=== PATIENT | male | born 1950 | race Caucasian/White ===

== ENCOUNTER 2017-10-08 21:17 | Emergency (ER) | payer OTHER ==
[~2017-10-08] VITALS: Ht 180.3 cm; Wt 98.0 kg
[~2017-10-08 21:17] MED LIST: ASPIR 8181 MG PER TUBE; ATORVASTATIN CA40 MG PER TUBE; CARAFATE1 GM PO; IMDUR 30 MG TAB30 M1 PO; JANUVIA100 MG PO; LEVEMIR SUBQ; LISINOPRIL-HCT1 EACH PO; METOPROLOL TART25 MG PER TUBE; NEURONTIN 300300 M1 PO; NITROGLYCERIN0.4 MG SUBLING; NOVOLOG100 UNIT/1 SUBQ; OMEGA-31000 M1 PO; PHENERGAN 25 MG25 M1 PO; SERTRALINE HCL50 MG PER TUBE; TRULICITY1.5 MG/0.5 SQ; VITAMIN B-12500 MCG PO
[2017-10-08] MEDS ORDERED: LISINOPRIL10 MG PO (21:32)
[2017-10-08 21:57] LABS: HEMATOCRIT 40.3 % (42.0-52.0); HEMOGLOBIN 12.9 gm/dL (14.0-18.0); MCV 84.3 fL (80.0-100.0); MPV 7.9 fl. (7.2-11.1); NUCLEATED RBCS 0 /100WBC; PLATELET COUNT* 270 thou/uL (150-400); RBC 4.79 mil/uL (4.50-6.00); RDW-CV 18.7 % (10.5-14.5); WBC 25.8 thou/uL (4.0-11.0)
[2017-10-08] MEDS ORDERED: ACETAMINOP160 MG/5 M PER TUBE (22:04)
[2017-10-08 22:05] LABS: CALCIUM 8.9 mg/dL (8.5-10.1); CREATININE 1.3 mg/dL (0.6-1.3); POTASSIUM 5.2 mmol/L (3.5-5.1)
[2017-10-08] MEDS ORDERED: LIORESAL 10 MG10 MG PER TUBE (22:05)
[2017-10-08] MEDS ORDERED: TESSALON PERLE100 MG PO (22:06)
[2017-10-08] MEDS ORDERED: ZERBAXA 1-0.51.5 GM IV (22:07)
[2017-10-08 22:08] LABS: APTT 29.4 Seconds (25.0-31.3); INR 1.1; PROTIME 10.8 Seconds (9.20-11.50)
[2017-10-08] MEDS ORDERED: DIFLUCAN200 MG PER TUBE (22:08)
[2017-10-08] MEDS ORDERED: GUAIFENESI100 MG/5 M PER TUBE (22:09)
[2017-10-08] MEDS ORDERED: ISORDIL10 MG PER TUBE (22:10)
[2017-10-08 22:16] LABS: ALBUMIN 2.7 g/dL (3.4-5.0); TOTAL BILIRUBIN 0.4 mg/dL (<0.1-1.0); TOTAL PROTEIN 8.4 g/dL (6.4-8.2); TROPONIN-I LEVEL 0.08 ng/mL (<0.06)
[2017-10-08] MEDS ORDERED: TOBRAMYCIN40 MG/1 ML IV (22:17)
[2017-10-08] MEDS ORDERED: TRAMADOL 50 MG50 MG PER TUBE (22:18)
[2017-10-08] MEDS ORDERED: SENNA8.8 MG/5 M PER TUBE (22:19)
[2017-10-08] MEDS ORDERED: SENNA8.6 MG PER TUBE (22:19)
[2017-10-08] MEDS ORDERED: OXYCODONE H5 MG/5 ML PER TUBE (22:21)
[2017-10-08] MEDS ORDERED: PROBIOTIC1 EAC1 PER TUBE (22:21)
[2017-10-08] MEDS ORDERED: ALBUTEROL2.5 MG/31 INH (22:22)
[2017-10-08 22:23] LABS: INFLUENZA A ANTIGEN None Detected (None Detect); INFLUENZA B ANTIGEN None Detected (None Detect)
[2017-10-08 22:26] LABS: ABSOLUTE LYMPHOCYTES 1.3 thou/uL (0.8-5.3); ABSOLUTE MONOCYTES 1.8 thou/uL (0.0-1.2); ABSOLUTE NEUTROPHILS 22.7 thou/uL (1.6-8.1); ANISOCYTOSIS Occasional; PLATELET ESTIMATE ADEQUATE; TOXIC GRANULATION 1+
[2017-10-09 00:08] VITALS: BP 162/83
--- NOTE | 2017-10-09 11:00 | EKG ---
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 : 1950 Requested By: Toribio Guzman Order Number: [id number] MD: Olivier Mckenzie Measurements Intervals [place] Rate: 125 P: 69 NM: 159 QRS: 88 QRSD: 95 T: -3 QT: 307 QTc: 443 Interpretive Statements Sinus tachycardia Borderline T wave abnormalities Baseline wander in lead(s) V1,V2 Compared to ECG 03/31/2017 20:14:59 rate increased Electronically Signed On 10-09-2017 11:00:12 ART GALLERY DIRECTOR by Olivier Mckenzie [email or web address] <ELECTRONICALLY SIGNED> By: Olivier Mckenzie MD, [facility] 10/09/17 1100 47 47 Olivier Mckenzie MD, FACC /EPI
== END 2017-10-09 00:08 | disposition short-term general hospital (02) ==
LOC: M.ERS 21:17
PROVIDERS: Emergency Medicine Emergency Medical Services
DX: J15.6 Pneumonia due to other Gram-negative bacteria (principal); E11.9 Type 2 diabetes mellitus without complications; I25.10 Atherosclerotic heart disease of native coronary artery without angina pectoris; Z95.1 Presence of aortocoronary bypass graft

== ENCOUNTER 2018-01-20 03:06 | Inpatient (IN) | payer OTHER ==
[~2018-01-20] VITALS: Ht 177.8 cm; Wt 103.0 kg
[~2018-01-20 03:06] MED LIST changes: +ACETAMINOP160 MG/5 M PER TUBE; +ALBUTEROL2.5 MG/31 INH; +DIFLUCAN200 MG PER TUBE; +GUAIFENESI100 MG/5 M PER TUBE; +ISORDIL10 MG PER TUBE; +LIORESAL 10 MG10 MG PER TUBE; +LISINOPRIL10 MG PO; +OXYCODONE H5 MG/5 ML PER TUBE; +PROBIOTIC1 EAC1 PER TUBE; +SENNA8.6 MG PER TUBE; +SENNA8.8 MG/5 M PER TUBE; +TESSALON PERLE100 MG PO; +TOBRAMYCIN40 MG/1 ML IV; +TRAMADOL 50 MG50 MG PER TUBE; +ZERBAXA 1-0.51.5 GM IV
[2018-01-20 03:07] VITALS: BP 148/81
[2018-01-20] MEDS ORDERED: LIORESAL 10 MG10 MG PER TUBE (03:17)
[2018-01-20] MEDS ORDERED: NEURONTIN250 MG/5 M PER TUBE ×2 (03:30→03:31)
[2018-01-20] MEDS ORDERED: MIRALAX17 GM PER TUBE (03:32)
[2018-01-20] MEDS ORDERED: VITAMINC500 PER TUBE (03:33)
[2018-01-20 03:48] LABS: HEMATOCRIT 25.7 % (42.0-52.0); HEMOGLOBIN 8.6 gm/dL (14.0-18.0); MCH 28.2 pg (26.0-34.0); MCHC 33.4 g/dL (28.0-37.0); MCV 84.4 fL (80.0-100.0); MPV 6.9 fl. (7.2-11.1); NUCLEATED RBCS 0 /100WBC; PLATELET COUNT* 289 thou/uL (150-400); RBC 3.05 mil/uL (4.50-6.00); RDW-CV 16.1 % (10.5-14.5); WBC 10.6 thou/uL (4.0-11.0)
[2018-01-20 03:57] LABS: BE 4.8 mmol/L (-2 to +3); HCO3 29.1 mmol/L (22.0-26.0); PCO2 41.8 mmHg (35.0-45.0); PO2 70.7 mmHg (75.0-100.0)
[2018-01-20 04:23] LABS: ANION GAP 7 mmol/L (7-16); BUN 25 mg/dL (7-18); CALCIUM 8.6 mg/dL (8.5-10.1); CHLORIDE 102 mmol/L (98-107); CO2 31 mmol/L (21-32); CREATININE 0.8 mg/dL (0.6-1.3); GLUCOSE 107 mg/dL (70-99); POTASSIUM 4.5 mmol/L (3.5-5.1); SODIUM 140 mmol/L (136-145)
[2018-01-20 04:30] LABS: ALBUMIN 2.5 g/dL (3.4-5.0); ALKALINE PHOSPHATASE 139 U/L (46-116); SGOT 26 U/L (15-37); SGPT 29 U/L (30-65); TOTAL BILIRUBIN 0.3 mg/dL (<0.1-1.0); TROPONIN-I LEVEL <0.06 ng/mL (<0.06)
[2018-01-20 06:26] LABS: ABSOLUTE EOSINOPHILS 0.2 thou/uL (0.0-0.7); ABSOLUTE LYMPHOCYTES 1.5 thou/uL (0.8-5.3); ABSOLUTE MONOCYTES 0.8 thou/uL (0.0-1.2); ABSOLUTE NEUTROPHILS 8.1 thou/uL (1.6-8.1); ATYPICAL LYMPHS 2 %; PLATELET ESTIMATE ADEQUATE
[2018-01-20 07:38] VITALS: BP 150/73
[2018-01-20 08:05] VITALS: BP 144/92
[2018-01-20 11:08] VITALS: BP 148/66
--- NOTE | 2018-01-20 14:57 | EKG ---
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 : 1950 Requested By: Angelina Rust Order Number: [id number] MD: Olivier Mckenzie Measurements Intervals [place] Rate: 98 P: 18 ME: 170 QRS: 41 QRSD: 89 T: 3 QT: 335 QTc: 428 Interpretive Statements Sinus rhythm Ventricular premature complex Compared to ECG 10/08/2017 21:48:54 Ventricular premature complex(es) now present Sinus tachycardia no longer present Electronically Signed On 01-20-2018 14:56:55 CDT by Olivier Mckenzie [email or web address] <ELECTRONICALLY SIGNED> By: Olivier Mckenzie MD, [facility] 01/20/18 1456 [phone] Olivier Mckenzie MD, [facility] /EPI
[2018-01-20 16:07] VITALS: BP 142/68
[2018-01-20 16:29] LABS: URINE BILIRUBIN NEGATIVE (Negative); URINE BLOOD NEGATIVE (Negative); URINE CLARITY CLEAR; URINE COLOR YELLOW; URINE GLUCOSE-RANDOM NEGATIVE (Negative); URINE KETONES NEGATIVE (Negative); URINE LEUKOCYTES-REFLEX NEGATIVE (Negative); URINE NITRITE-REFLEX NEGATIVE (Negative); URINE PROTEIN NEGATIVE (Negative); URINE SPECIFIC GRAVITY 1.015 (1.005-1.030); URINE UROBILINOGEN 0.2 E.U./dl (0.2-1.0)
--- NOTE | 2018-01-20 18:23 | NUR ---
PATINET RESTING IN BED. UP WITH ASSISTANCE R/T LEG WEAKNESS. TUBE FEEDINGS AT NIGHT WITH OSMOLITE 1.5 X 5 CANS AT RATE GOAL OF 80ML/HR. PATINET HEAD OF BED TO REMAIN AT NO LESS THAN 30 DEGREES. VITAL SIGNS STBALE. LIUNGS DIMINISHED TO WHEEZY THROUGHOUT. HOURLY ROUNDING COMPLETED FOR PATIENT SAFETY. TUBE FEEDINGS THROUGHT J TUBE. UA AND SPUTUM SPECIMEN SENT.
[2018-01-20 19:50] VITALS: BP 158/71
[2018-01-21] VITALS: BP 147/78
--- NOTE | 2018-01-21 02:06 | NUR ---
ASSUMED CARE OF PT AT 1900. PT IS ALERT AND ORIENTED. VSS. PERRLA. NO COMPLAINTS OF PAIN. PT IS ON TUBE FEEDING (ISOSOURCE 1.5) AT 80ML/HR. TUBE FEEDING STARTED AT 2200. PT IS COUGHING UP COPIOUS AMOUNTS OF THICK YELLOW SPUTUM. PT IS IN SINUS RYTHM ON THE TELEMETRY. PT IS RESTING COMFORTABLY IN BED. RESPIRATIONS ARE EVEN AND NONLABORED. WILL CONTINUE TO MONITOR PT.
[2018-01-21 04:00] VITALS: BP 147/76
[2018-01-21 04:55] LABS: HEMATOCRIT 26.8 % (42.0-52.0); MCH 28.5 pg (26.0-34.0); MCHC 33.4 g/dL (28.0-37.0); MCV 85.4 fL (80.0-100.0); RBC 3.14 mil/uL (4.50-6.00); RDW-CV 15.5 % (10.5-14.5); WBC 6.8 thou/uL (4.0-11.0)
[2018-01-21 05:10] LABS: ALBUMIN 2.2 g/dL (3.4-5.0); CALCIUM 8.6 mg/dL (8.5-10.1); MAGNESIUM 1.9 mg/dL (1.8-2.4); TOTAL BILIRUBIN 0.4 mg/dL (<0.1-1.0); TOTAL PROTEIN 7.6 g/dL (6.4-8.2)
[2018-01-21 05:21] LABS: POTASSIUM 6.4 mmol/L (3.5-5.1)
[2018-01-21 08:00] VITALS: BP 157/76
[2018-01-21 11:00] VITALS: BP 138/81
[2018-01-21 12:31] LABS: CREATININE 1.3 mg/dL (0.6-1.3); POTASSIUM 5.6 mmol/L (3.5-5.1)
[2018-01-21 16:00] VITALS: BP 141/81
[2018-01-21 19:45] VITALS: BP 142/65
[2018-01-22] VITALS: BP 140/80
--- NOTE | 2018-01-22 03:42 | NUR ---
REPORT AND ASSUMED CARE AT 1900. VSS. CARDIAC MONITORING IN PLACE. PT DENIES ANY COMPLAINTS OF PAIN. PT UP WITH ASSIST TO BSC, PT ON 2L NC. MEDICATIONS ADMINISTERED PER EMAR. ASSESSMENT COMPLETED CHARTED. PT TUBE FFEDING STARTED AND RAN AT 60ML/HR. PT DOES NOT TOLDERATE 80ML/HR WELL ORDERED. HOURLY ROUNDING COMPLETED, ALL NEEDS MET. BED IN LOWEST POSITION, CALL LIGHT WITHIN REACH, BED ALARM ON. WILL CONTINUE TO MONITOR FOR REMAINDER OF THE SHIFT
[2018-01-22 04:00] VITALS: BP 110/68
[2018-01-22 04:06] LABS: GLYCOHEMOGLOBIN (HGB A1C) 5.4 % (4.8-5.6)
[2018-01-22 05:49] LABS: ABSOLUTE LYMPHOCYTES 0.7 thou/uL (0.8-5.3); ABSOLUTE MONOCYTES 1.1 thou/uL (0.0-1.2); BASOPHILS 0.1 %; EOSINOPHILS 0.1 %; HEMATOCRIT 26.3 % (42.0-52.0); HEMOGLOBIN 8.9 gm/dL (14.0-18.0); LYMPHOCYTES 3.9 %; MCH 28.2 pg (26.0-34.0); MCHC 33.6 g/dL (28.0-37.0); MONOCYTES 6.5 %; MPV 6.9 fl. (7.2-11.1); NUCLEATED RBCS 0 /100WBC; PLATELET COUNT* 321 thou/uL (150-400); POLYS 89.4 %; RBC 3.14 mil/uL (4.50-6.00); RDW-CV 15.7 % (10.5-14.5); WBC 16.8 thou/uL (4.0-11.0)
[2018-01-22 06:03] LABS: ALBUMIN 2.4 g/dL (3.4-5.0); CALCIUM 8.8 mg/dL (8.5-10.1); CREATININE 1.2 mg/dL (0.6-1.3); TOTAL BILIRUBIN 0.4 mg/dL (<0.1-1.0); TOTAL PROTEIN 7.3 g/dL (6.4-8.2)
[2018-01-22 06:15] LABS: PREALBUMIN 15.9 mg/dL (18.0-35.7)
[2018-01-22 08:00] VITALS: BP 166/80
[2018-01-22 11:30] VITALS: BP 174/78
[2018-01-22 17:24] VITALS: BP 132/61
[2018-01-22 19:30] VITALS: BP 149/86
[2018-01-23] VITALS: BP 148/72
[2018-01-23 04:00] VITALS: BP 141/73
[2018-01-23 05:29] LABS: HEMATOCRIT 24.6 % (42.0-52.0); HEMOGLOBIN 8.2 gm/dL (14.0-18.0); MCH 28.1 pg (26.0-34.0); MCHC 33.3 g/dL (28.0-37.0); MCV 84.3 fL (80.0-100.0); MPV 6.8 fl. (7.2-11.1); NUCLEATED RBCS 0 /100WBC; PLATELET COUNT* 280 thou/uL (150-400); RBC 2.92 mil/uL (4.50-6.00); RDW-CV 16.1 % (10.5-14.5); WBC 12.6 thou/uL (4.0-11.0)
--- NOTE | 2018-01-23 05:30 | NUR ---
RECEIVED REPORT AND ASSUMED CARE AT 1900. VSS. CARDIAC MONITORING IN PLACE. PT UP WITH 1 TO BSC, A&OX4, ON 3L NC. PT HAS PRODUCTIVE COUGH WITH COPIOUS AMT OF SPUTUM. PT REPORTS PAIN IN BACK, PRN MEDICATION ADMINISTERED PER ORDERS. ASSESSMENT COMPLETED CHARTED. PT HAS LOW GRADE FEVER AT BEGINNING OF SHIFT. PRN MEDICATION ADMINISTERED, RESULT OF TEMP IN NORMAL LIMITS. MEDICATIONS ADMIN PER ORDERS. PT TUBE FEEDING STARTED 60ML/HR, NEW TUBING. DISCUSSED PLAN OF CARE, PT VERBALIZED UNDERSTANDING. Q2T COMPLETED THROUGH SHIFT. HOURLY ROUNDING COMPLETED, ALL NEEDS MET. BED IN LOWEST POSITION, CALL LIGHT WITHIN REACH, BED ALARM ON. WILL MONITOR FOR REMIANDER OF THE SHIFT
[2018-01-23 05:40] LABS: ALBUMIN 2.1 g/dL (3.4-5.0); CALCIUM 8.2 mg/dL (8.5-10.1); POTASSIUM 3.5 mmol/L (3.5-5.1); TOTAL BILIRUBIN 0.3 mg/dL (<0.1-1.0); TOTAL PROTEIN 6.8 g/dL (6.4-8.2)
[2018-01-23 05:44] LABS: PREALBUMIN 14.5 mg/dL (18.0-35.7)
[2018-01-23 08:00] VITALS: BP 132/79
[2018-01-23 08:53] LABS: ABSOLUTE LYMPHOCYTES 0.5 thou/uL (0.8-5.3); ABSOLUTE MONOCYTES 0.6 thou/uL (0.0-1.2); ABSOLUTE NEUTROPHILS 11.5 thou/uL (1.6-8.1)
[2018-01-23 08:54] LABS: HYPOCHROMASIA Occasional; MACROCYTES Occasional; MICROCYTES Occasional; PLATELET ESTIMATE ADEQUATE
--- NOTE | 2018-01-23 10:58 | NUR ---
Pt is A&O. Resides at home with his . Pt states that his does all of the ADLs and assist with his bathing, Pt states that he is able to dress himself. Pt states that he is currently wc bound, states that he has spent a lot of time at , trying to figure out why his legs are weak. Hx of [facility]. Pt receives tube feedings at home. [facility] Hx of HH, but does not recall the name of the agency. Pt's goal is to return home with HH. Following.
[2018-01-23 12:03] VITALS: BP 139/65
--- NOTE | 2018-01-23 14:23 | CON ---
[address] [address] CONSULTATION Name: MAEGAN SCHMIDT Room: [address] IN M.R.#: [id number] Admission: 01/20/18 Attend Phys: Pastor Dunne, Discharge: Date of : 54 Report #: [id number] THIS REPORT FOR: //name// CC: Physician staff ALINA Dunne REASON FOR CONSULTATION: Fnogc-up-ivgnapg respiratory failure. HISTORY OF PRESENT ILLNESS: This is a 67-year-old male patient with history of esophageal cancer. He actually was hospitalized and was on mechanical ventilation during September of this year at . He sees for his esophageal cancer. He is status post stent that was placed in October in his esophagus. 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 He is status post PEG tube placement. He had history of aspiration pneumonia multiple times in the past and he tries his best not to eat or drink, but from time to time he would eat small meals; for example a couple of weeks ago, he tried some burger according to him. He sees Oncology. He presented to the hospital with 2 weeks' history of increasing shortness of breath associated with cough. The cough is productive of secretions and yellow in color and thin per the patient. He has no chest pain, no fever, no headache. Still he is not back to his baseline. He was started on antibiotics. He denied any lower extremity edema. He has a hospital bed at home where he can sleep with the head of the bed elevated. He sometimes at night with coughing. ALLERGIES: No known drug allergies. HOME MEDICATIONS: Insulin, oxycodone, Lipitor, metoprolol, aspirin, senna, baclofen, ascorbic acid, Tylenol. PAST MEDICAL HISTORY: History of esophageal cancer status post stent, history of PEG tube placement, history of coronary artery disease status post CABG back in 1998, history of diabetes mellitus. FAMILY HISTORY: Positive for COPD. SOCIAL HISTORY: Ex-smoker. Does not smoke anymore. Does not drink alcohol. Does not abuse drugs. REVIEW OF SYSTEMS: He denied any congestion, headache, eye pain. He is not sure if he had any fever or chills. He had no nausea, no vomiting, but he has some feeling of reflux disease. He denied any back pain. The rest of the review of system was negative. Full systems reviewed with the patient. PHYSICAL EXAMINATION: [place] [address] CONSULTATION Name: MAEGAN SCHMIDT Room: [address]#: [id number] Admission: 01/20/18 Attend Phys: Pastor Dunne, Discharge: Date of : 54 Report #: [id number] VITAL SIGNS: On examination, his blood pressure , pulse rate of 79, temperature 36.8. He is on 3-4 liters oxygen with saturation more than 90%. GENERAL: Speaks in full sentences, not in pain, not in distress. HEENT: Head normocephalic, atraumatic. Pupils equal, reactive to light. Not jaundiced, not pale. External ear looks healthy and normal. Oral cavity: Moist mucous membrane. Mallampati of 2. NECK: Supple. No palpable lymph nodes. No palpable thyroid. Trachea is central. CHEST: Diminished air movement bilaterally with prolonged expiratory phase, crackles at the right lung base, symmetrical expansion. HEART: S1, S2. No murmur, no gallop. ABDOMEN: Postsurgical multiple healed scars. PEG tube in place, nontender. Positive bowel sounds. LOWER EXTREMITIES: Trace edema, no calf tenderness. SKIN: Normal for age and race, no rash. NEUROLOGIC: Moving 4 extremities spontaneously. No focal weakness. Cranial nerves are grossly normal. PSYCHIATRIC: Mood and affect anxious. LABORATORY DATA: His chest x-ray demonstrated patchy basilar infiltrate of the right lung base that was confirmed by the CT scan, presence of stent also was noted on his chest imaging. His white blood count is 10.6, hemoglobin 8.6, platelets of 286. His ABG is 7.46/41/70 and this was done on 2 liters oxygen. His creatinine upon hospitalization was 1, BUN of 24, sodium 135, bicarbonate of 27. IMPRESSION: 1. Tzdzw-nu-ycovthe respiratory failure, the patient is on oxygen at home. 2. Aspiration pneumonia. 3. Dysphagia. 4. Esophageal cancer status post stent, radiation and chemotherapy, follows with Oncology at . 5. Previous history of smoking. The patient's clinical picture is consistent with aspiration pneumonia. I would continue the antibiotics at this point. Follow cultures. Continue on a scheduled bronchodilator therapy. I am not having evidence of wheezes or evidence of bronchospasm. We can hold off on the steroids at this point. Unfortunately, the patient is trying his best not to eat or drink and use the percutaneous endoscopic gastrostomy tube, but still he aspirates. Would suspect it is related to the stent and reflux disease. At the same time, could be also related to upper airway secretion. [address] [address] CONSULTATION Name: MAEGAN SCHMIDT Room: [address] IN .R.#: [id number] Admission: 01/20/18 Attend Phys: Pastor Dunne, Discharge: Date of : 54 Report #: [id number] Thank you for the consult. We will follow along with you. Discussed with the patient. <ELECTRONICALLY SIGNED> By: Mojgan Carnes MD 01/23/18 1423 1202 1905Abdirahman Ingram MD /trice
[2018-01-23 16:06] VITALS: BP 131/74
[2018-01-23 20:00] VITALS: BP 162/60
[2018-01-24 00:04] VITALS: BP 128/56
[2018-01-24 03:39] VITALS: BP 146/76
--- NOTE | 2018-01-24 04:42 | NUR ---
ASSUMED PT CARE AT 1930, PT IS A&OX4, PT IS TRACING NSR ON THE MONTIOR, ON 3L NC SATTING MID TO HIGH 90'S. PT HAS TUBE FEEDINGS RUNNING AT 60ML/HR. PT C/O ABD PAIN PRN PAIN MEDICATIONS GIVEN PER OCT. PT IS COUGHING UP COPIOUS AMOUNTS OF THIN GREEN YELLOW SPUTUM. PT RESTED ON AND OFF THROUGHOUT THE NIGHT. BED IN LOW POSITION, CALL LIGHT IN REACH, BED ALARM ON, YELLOW ARM ABND AND SOCKS IN PLACE, HOURLY ROUNDING COMPLETED FOR PT SAFETY.
[2018-01-24 04:52] LABS: ABSOLUTE EOSINOPHILS 0.3 thou/uL (0.0-0.7); ABSOLUTE LYMPHOCYTES 0.7 thou/uL (0.8-5.3); ABSOLUTE MONOCYTES 0.8 thou/uL (0.0-1.2); ABSOLUTE NEUTROPHILS 10.4 thou/uL (1.6-8.1); BASOPHILS 0.3 %; EOSINOPHILS 2.3 %; HEMOGLOBIN 8.4 gm/dL (14.0-18.0); MCH 28.6 pg (26.0-34.0); MCHC 33.6 g/dL (28.0-37.0); MCV 85.1 fL (80.0-100.0); MONOCYTES 6.3 %; MPV 6.7 fl. (7.2-11.1); NUCLEATED RBCS 0 /100WBC; PLATELET COUNT* 272 thou/uL (150-400); POLYS 85.1 %; RBC 2.93 mil/uL (4.50-6.00); RDW-CV 16.1 % (10.5-14.5); WBC 12.3 thou/uL (4.0-11.0)
[2018-01-24 05:02] LABS: PREALBUMIN 13.8 mg/dL (18.0-35.7)
[2018-01-24 05:09] LABS: ALBUMIN 2.1 g/dL (3.4-5.0); CALCIUM 8.4 mg/dL (8.5-10.1); CREATININE 0.9 mg/dL (0.6-1.3); POTASSIUM 3.7 mmol/L (3.5-5.1); TOTAL BILIRUBIN 0.3 mg/dL (<0.1-1.0); TOTAL PROTEIN 6.9 g/dL (6.4-8.2)
--- NOTE | 2018-01-24 07:15 | NUR ---
CHANGE OF SHIFT, BEDSIDE REPORT GIVEN PATIENT SEEN AT BEDSIDE, IN BED ASLEEP ASSUMED PATIENT CARE
[2018-01-24 08:00] VITALS: BP 121/76
--- NOTE | 2018-01-24 11:43 | NUR ---
WAS ASKED TO ARRANGE TRANSFER TO FOR EVAL OF POSSIBLE TRANS-ESOPH FISTULA. CALLED [facility] TEAM/GENE. FAXED CLINICAL INFO REQUESTED. AWAIT CALL BACK
--- NOTE | 2018-01-24 11:52 | CON ---
[address] [address] CONSULTATION Name: MAEGAN SCHMIDT MARLEN Room: [address] IN M.R.#: [id number] Admission: 01/20/18 Attend Phys: Pastor Dunne, Discharge: Date of : 54 Report #: [id number] THIS REPORT FOR: //name// CC: Physician staff ALINA Dunne DATE OF SERVICE: 01/23/2018 INFECTIOUS DISEASE CONSULTATION ATTENDING PHYSICIAN: Pastor Dunne MD REASON FOR EVALUATION: Suspected aspiration pneumonitis. HISTORY OF PRESENT ILLNESS: Chart reviewed, patient examined. This is a 67-year-old man with known esophageal cancer. He has had previous esophagectomy, now he is also noted to have diabetes mellitus who was admitted with progressive dyspnea over the course of last 3 days prior to admission. At some point he had developed a tracheoesophageal fistula and currently is on only enteral nutrition via percutaneous feeding tube. As per the evaluation it is suggested he had pneumonitis. He is coughing up some thick colored sputum now with growth of Pseudomonas species, pending susceptibilities. On discussion, he notes he had had this previously, had a prolonged course several weeks of combination therapy with Zerbaxa as well as tobramycin. At this point, he is not overtly toxic. He is on some supplemental oxygen, but he is not clearly struggling. He did have a temperature elevation to 100.6. He is empirically started on piperacillin and tazobactam and vancomycin. ALLERGIES: None known. MEDICATIONS: Include oxycodone, vancomycin, Zosyn, metoprolol, atorvastatin, baclofen, gabapentin, p.r.n. analgesics. PAST MEDICAL HISTORY: As described above, esophageal cancer, underwent radiation, chemotherapy and surgery, now with suspected recurrence, he does have a PEG in place. He has known atherosclerotic coronary artery disease with previous aortocoronary bypass grafting, history of diabetes mellitus. SOCIAL HISTORY: Former smoker. No ethanol. FAMILY HISTORY: Noncontributory. REVIEW OF SYSTEMS: As above. PHYSICAL EXAMINATION: [address], [place] [address] CONSULTATION Name: MAEGAN SCHMIDT Room: [address]#: [id number] Admission: 01/20/18 Attend Phys: Pastor Dunne, Discharge: Date of : 54 Report #: [id number] GENERAL: He is alert, cooperative, mild to moderate distress, although he is not overtly toxic, does appear to have significant weight loss. VITAL SIGNS: Temperature 99.1, pulse 96, respirations 18, blood pressure 131/74. SKIN: Warm, dry, no rashes. HEENT: Nasal cannula oxygen in place. NECK: Supple. LUNGS: Somewhat diminished, few scattered coarse breath sounds. HEART: Regular. Borderline tachycardic. Soft systolic murmur. ABDOMEN: Percutaneous enteral feeding tube in place. Distended, soft. There are no peritoneal signs. GENITOURINARY: Deferred. RECTAL: Deferred. LABORATORY DATA: Most recent CBC: White count of 12.6, H and H 8.2 and 24.6, platelets of 280. Electrolytes: Sodium 145, potassium 3.5, chloride 108, bicarbonate is 31, anion gap of 6, BUN and creatinine 24 and 1.0, glucose of 232. LFTs unremarkable. Albumin of 2.1, total protein 6.8, estimated GFR of 75. Prealbumin of 14.5. CRP of 63.9. Sputum culture with few gram-negative rods, isolated pseudomonas species, await results, apparently had some mixed culture. Blood cultures sterile thus far. Chest x-ray, poor inspiration, mild bibasilar atelectasis. Hemoglobin A1c of 5.4. IMAGING: CT chest showed patchy nodular infiltrates in both lungs, indeterminate density in the superior aspect of the liver, which is also noted on CT of the abdomen which is question of possible recurrence with hepatic metastases. Lactic acid initially was 0.8. ASSESSMENT: Pneumonitis in the setting of clear risk for aspiration, previous history of tracheoesophageal fistula with also previous history of pseudomonas isolated from respiratory tract secretions. PLAN: We will continue the Zosyn, await susceptibilities at this point and adjust as needed. Likely will need therapy post-discharge, perhaps parenteral in addition to the inhalation. We will add LUCINA to the regimen at this point. Thank you for followup. <ELECTRONICALLY SIGNED> By: Geoffrey Gannon MD 01/24/18 1152 1635 [id number] Gannon MD /nt
[2018-01-24 11:54] VITALS: BP 150/70
[2018-01-24 16:00] VITALS: BP 132/66
--- NOTE | 2018-01-24 19:15 | NUR ---
PATIENT TRANSFERRED TO 'REPORT GIVEN TO NURSE GALINA PAPERWORK COPIES SENT AT BEDSIDE PATIENT TRANPORTED AMBULANCE GOOD CONDITION
== END 2018-01-24 19:20 | disposition short-term general hospital (02) | DRG 177 ==
LOC: M.ERS 03:06 → M.2W 04:14 → M.TBA-ER 04:14 → M.2W 07:52
PROVIDERS: Internal Medicine; Personal Emergency Response Attendant; ADMIT Family Medicine
DX: J69.0 Pneumonitis due to inhalation of food and vomit (principal); J96.21 Acute and chronic respiratory failure with hypoxia; E44.0 Moderate protein-calorie malnutrition; J44.1 Chronic obstructive pulmonary disease with (acute) exacerbation; R65.10 Systemic inflammatory response syndrome (SIRS) of non-infectious origin without acute organ dysfunction; D64.9 Anemia, unspecified; K76.9 Liver disease, unspecified; B96.5 Pseudomonas (aeruginosa) (mallei) (pseudomallei) as the cause of diseases classified elsewhere; R13.10 Dysphagia, unspecified; I25.10 Atherosclerotic heart disease of native coronary artery without angina pectoris; Z79.84 Long term (current) use of oral hypoglycemic drugs; Z85.01 Personal history of malignant neoplasm of esophagus; Z79.899 Other long term (current) drug therapy; Z95.1 Presence of aortocoronary bypass graft; Z79.4 Long term (current) use of insulin; Z79.82 Long term (current) use of aspirin; Z83.6 Family history of other diseases of the respiratory system; Z87.891 Personal history of nicotine dependence; Z92.21 Personal history of antineoplastic chemotherapy; Z92.3 Personal history of irradiation; Z99.81 Dependence on supplemental oxygen; Z68.32 Body mass index [BMI] 32.0-32.9, adult

== ENCOUNTER 2018-02-05 23:48 | Inpatient (IN) | payer OTHER ==
[~2018-02-05] VITALS: Ht 177.8 cm; Wt 97.1 kg
[~2018-02-05 23:48] MED LIST changes: +MIRALAX17 GM PER TUBE; +NEURONTIN250 MG/5 M PER TUBE; +VITAMINC500 PER TUBE
[2018-02-05 23:50] VITALS: BP 136/60
[2018-02-06] VITALS (11 sets, daily range): BP systolic 101–147; BP diastolic 54–72
--- NOTE | 2018-02-06 00:31 | NUR ---
450 ML OF SODIUM CHLORIDE GIVEN THAT WAS INFUSING PER PARAMEDICS PER DR KIRKLAND'S INSTRUCTIONS
[2018-02-06 00:57] LABS: ABSOLUTE BASOPHILS 0.1 thou/uL (0.0-0.2); ABSOLUTE EOSINOPHILS 0.3 thou/uL (0.0-0.7); ABSOLUTE NEUTROPHILS 8.2 thou/uL (1.6-8.1); BASOPHILS 0.4 %; EOSINOPHILS 2.9 %; HEMATOCRIT 26.7 % (42.0-52.0); HEMOGLOBIN 8.8 gm/dL (14.0-18.0); LYMPHOCYTES 17.1 %; MCH 28.1 pg (26.0-34.0); MCHC 32.9 g/dL (28.0-37.0); MCV 85.3 fL (80.0-100.0); MONOCYTES 8.8 %; MPV 7.9 fl. (7.2-11.1); NUCLEATED RBCS 0 /100WBC; PLATELET COUNT* 208 thou/uL (150-400); POLYS 70.8 %; RBC 3.14 mil/uL (4.50-6.00); RDW-CV 16.4 % (10.5-14.5); WBC 11.5 thou/uL (4.0-11.0)
[2018-02-06 01:05] LABS: ALBUMIN 2.1 g/dL (3.4-5.0); CALCIUM 8.5 mg/dL (8.5-10.1); TOTAL BILIRUBIN 0.3 mg/dL (<0.1-1.0); TOTAL PROTEIN 7.4 g/dL (6.4-8.2); TROPONIN-I LEVEL 0.26 ng/mL (<0.06)
[2018-02-06 01:06] LABS: POTASSIUM 4.7 mmol/L (3.5-5.1)
--- NOTE | 2018-02-06 03:00 | NUR ---
PATIENT TRANSFERRED FROM ER ON VENTILATOR WITH VERSED GTT. PT HAS PEG TUBE (CAME FROM HOME) SLAUGHTER. RESPONSIVE TO PAIN, GAG REFLEX PRESENT. LARGE THICK SECRETIONS FROM ET TUBE. HE IS DNR ORDERS IN CHART ALONG WITH DPOA INFORMATION. , SON AND DAOUGHTER WITH PT. NO VOICED CONCERNS AT THIS TIME. WILL DRAW ABG. CALL FOR FURTHER ORDERS.
[2018-02-06 04:12] LABS: BE 0.3 mmol/L (-2 to +3); HCO3 26.9 mmol/L (22.0-26.0); pH 7.321 (7.340-7.450)
[2018-02-06 04:17] LABS: PCO2 53.3 mmHg (35.0-45.0); PO2 275.2 mmHg (75.0-100.0)
--- NOTE | 2018-02-06 09:16 | NUR ---
PATIENT CARE ASSUMED AT 0700. PATIENT SEDATED ON VENTILATOR. HOSPITALIST IN TO SEE PATIENT/FAMILY THIS MORNING. FAMILY HAS DECIDED TO GIVE PATIENT ONE DAY TO SEE IF HE CAN IMPROVE AND BE EXTUBATED, HOWEVER VOICES THAT PATIENT HAS BEEN EXPRESSING AT HOME HOW HE IS TIRED OF FIGHTING. PATIENT IS NOTED DNR WITH METASTATIC CANCER. PATIENT STATES PER KU HE NOW HAS TWO NEW LESIONS TO LIVER AND KU HAD BEEN DISCUSSING HOSPICE CARE WITH THE FAMILY. DID VOICE THAT PATIENT WOULD NOT WANT TO BE IN A HOSPITAL/FACILITY AND WOULD LIKE TO BE AT HOME. PATIENT STABLE VITALS AT THIS TIME, TRACING NSR ON CARDIAC MONIOTR, BPS STABLE, AFEBRILE, O2 100% ON 40% FIO2 ON VENTILATOR. PULMONARY CONSULTED THIS AM TO MANAGE THE VENTILATOR AND DISCUSS PLANS WITH FAMILY. CARDIOLOGY CONSULTED FOR INCREASING TROPONINS. NO ACUTE CONCERNS, NO OTHER NEW ORDERS.
--- NOTE | 2018-02-06 10:50 | NUR ---
PT KNOWN TO CASE T FROM PREVIOUS ADMISSION. PT HAS ESOPHAGEAL CANCER. HE LIVES AT HOME WITH HIS . HE IS W/C BOUND AT HOME, HAS HOME O2 [facility], HAS A PEG TUBE AND IS ON TUBE FEEDINGS AT HOME. SPOKE WITH MELBA AT BEDSIDE. 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 AGREED TO INTUBATION YESTERDAY BUT STATES SHE JUST WANTED TO GIVE IT A LITTLE TIME TO SEE IF HE WOULD IMPROVE. SHE SAID HER CHILDREN WILL ALL BE HERE BY 3:00 THIS AFTERNOON, SHE WANTS ALL OF THEM TO SEE HIM AND THEN MAY BE READY TO HAVE THE VENTILATOR REMOVED. SHE SAID THE PT WAS ALERT ENOUGH EARLIER TO SHAKE HIS HEAD NO WHEN ASKED HIM ABOUT STAYING ON THE VENTILATOR. SAID THAT ALL THE CHILDREN KNOW OF PT'S WISHES. HAS MY PHONE NUMBER AND KNOWS THAT NURSING CAN ALSO REACH ME, IF THERE IS ANYTHING THAT I CAN HELP WITH. HAVE A REFERRAL TO TALK TO ABOUT HOSPICE BUT WILL SEE HOW THE DAY PROGRESSES.
--- NOTE | 2018-02-06 12:36 | NUR ---
Nutrition: Consult received for "wt changes." Pt used to weigh 250#, last year. He has metastatic cancer from esophagus, liver lesions, removal of esophagus, PEG tube. Current wt is 214#. 14% loss over a year. NPO with aspiration pneumonia. Has a home regimen TF. On ventilator currently. Per notes, family is coming in today. Possible extubation. Pt is DNR. Needs hospice care. Unsure of need for TF recs at this time. RD will follow, and make nutrition recs as appropriate. 02/07/18.
--- NOTE | 2018-02-06 14:58 | NUR ---
PATIENT'S WANTING TO TAKE PATIENT OFF SEDATION AND LET HIM MAKE DECISION IF HE WANTS TO GO COMFORT CARE. DR MIX AWARE. VERSED GTT TURNED OFF AT THIS TIME.
--- NOTE | 2018-02-06 15:01 | EKG ---
[place] [address] ELECTROCARDIOGRAM REPORT Name: MAEGAN SCHMIDT Room: [address] IN M.R.#: [id number] Admission: 02/06/18 Attend Phys: Ambrocio Dyson MD Discharge: Date of : 54 Report #: [id number] THIS REPORT FOR: //name// [facility] ED Test Date: 2018-02-05 Test Time: 23:59:00 Pat Name: MAEGAN SCHMIDT Department: Room: Gender: Tube Winder: KAREEM : 1950 Requested By: Angelina Rust Order Number: [id number] MD: Carlton Wilkerson Measurements Intervals [place] Rate: 106 P: 72 MN: 163 QRS: 85 QRSD: 93 T: 98 QT: 364 QTc: 484 Interpretive Statements Sinus tachycardia Borderline right axis deviation Abnormal inferior Q waves Repol abnrm suggests ischemia anterolateral Baseline wander in lead(s) V1,V3 Compared to ECG 01/20/2018 03:57:46 Inferior Q waves now present Q waves now present Early repolarization now present Possible ischemia now present Ventricular premature complex(es) no longer present Electronically Signed On 02-06-2018 15:01:40 CDT by Carlton Wilkerson [email or web address] <ELECTRONICALLY SIGNED> By: Carlton Wilkerson MD, [facility] 02/06/18 1501 2359 [id number] Carlton Wilkerson MD, [facility] /EPI
--- NOTE | 2018-02-06 15:57 | NUR ---
PATIENT EXTUBATED AT 1345. PATIENT PLACED ON 3L NC PER FAMILY REQUEST.
--- NOTE | 2018-02-06 16:35 | NUR ---
PATIENT DOING BETTER THAN EXPECTED AFTER EXTUBATION. ALERT, ORIENTED X4. APPROPRIATE, CALM. CONVERSING WITH FAMILY. DENIES PAIN. O2 SAT 90% ON 3L NC. BLOOD PRESSURES STABLE. DR MIX NOTIFIED OF PATIENT STATUS, ORDERED TO LEAVE CURRENT MEDICATIONS, BREATHING RX & ANTIBIOTICS ORDERED AND CONTINUE TO TREAT PATIENT AT THIS TIME. DNR STATUS REMAINS IN PLACE. ALL FAMILY AT BEDSIDE, UPDATED ON THIS. DENIES FURTHER CONCERNS ABOUT PATIENT CARE.
--- NOTE | 2018-02-06 16:51 | 2DMMODE ---
[place] [address] 2 D/M-MODE ECHOCARDIOGRAM Name: MAEGAN SCHMIDT Room: [facility] IN [facility]#: [id number] Admission: 02/06/18 Attend Phys: Ambrocio Dyson, Discharge: Date of : 54 Date of Service: 02/06/18 1651 Report #: [id number] THIS REPORT FOR: //name// APPROVED REPORT Study performed: 02/06/2018 14:27:25 EXAM: Comprehensive 2D, Doppler, and color-flow Echocardiogram Patient Location: In-Patient Room #: 006 Status: routine BSA: 2.15 HR: 90 bpm BP: 118/62 mmHg Rhythm: NSR Other Information Study Quality: Good Indications Elevated Troponin 2D Dimensions LVEF(%): 49.48 (>50%) IVSd: 15.05 (7-11mm) LVOT Diam: 19.63 (18-24mm) LVDd: 42.64 mm PWd: 12.89 (7-11mm) Ascending Ao: 31.27 (22-36mm) LVDs: 32.06 (25-40mm) Aortic Root: 30.81 mm Cárdenas's LVEF: 49.48 % Volumes Left Atrial Volume (Systole) LA ESV Index: 22.40 mL/m2 Aortic Valve AoV Peak Juventino.: 1.77 m/s AO Peak Gr.: 12.48 mmHg LVOT Max P.56 mmHg AO Mean Gr.: 7.29 mmHg LVOT Mean P.71 mmHg LVOT Max V: 0.94 m/s AO V2 VTI: 34.14 cm LVOT Mean V: 0.60 m/s CARIDAD (VTI): 1.49 cm2 LVOT V1 VTI: 16.84 cm Mitral Valve E/A Ratio: 0.67 [place] [address] 2 D/M-MODE ECHOCARDIOGRAM Name: MAEGAN SCHMIDT Room: [address] IN .R.#: [id number] Admission: 02/06/18 Attend Phys: Ambrocio Dyson, Discharge: Date of : 54 Date of Service: 02/06/18 1651 Report #: [id number] MV Decel. Time: 171.55 ms MV E Max Juventino.: 0.66 m/s MV PHT: 49.75 ms MVA (PHT): 4.42 cm2 TDI E/Lateral E': 5.50 E/Medial E': 11.00 Medial E' Juventino.: 0.06 m/s Lateral E' Juventino.: 0.12 m/s Pulmonary Valve PV Peak Juventino.: 1.28 m/s PV Peak Gr.: 6.56 mmHg Left Ventricle The left ventricle is normal size. There is normal LV segmental wall motion. Moderate concentric left ventricular hypertrophy. Left ventricular systolic function is normal. The left ventricular ejection fraction is within the normal range. LVEF is 55-60%. Grade I - abnormal relaxation pattern. Right Ventricle The right ventricle is normal size. The right ventricular systolic function is normal. Atria The left atrium size is normal. The right atrium size is normal. Aortic Valve Moderate aortic valve sclerosis. No aortic regurgitation is present. Mild aortic stenosis. Mitral Valve The mitral valve is normal in structure. Trace mitral regurgitation. No evidence of mitral valve stenosis. Tricuspid Valve The tricuspid valve is normal in structure. Unable to assess PA pressure. Trace tricuspid regurgitation. Pulmonic Valve The pulmonary valve is normal in structure. There is no pulmonic valvular regurgitation. Great Vessels The aortic root is normal in size. IVC is [place] [address] 2 D/M-MODE ECHOCARDIOGRAM Name: BRAYANMAEGANRONAK GEE Room: [address] IN [facility]#: [id number] Admission: 02/06/18 Attend Phys: Ambrocio Dyson, Discharge: Date of : 54 Date of Service: 02/06/18 1651 Report #: [id number] collapses with >50% inspiration Pericardium There is no pericardial effusion. <Conclusion> The left ventricle is normal size. Moderate concentric left ventricular hypertrophy. Left ventricular systolic function is normal. The left ventricular ejection fraction is within the normal range. LVEF is 55-60%. Grade I - abnormal relaxation pattern. The right ventricle is normal size. The left atrium size is normal. Moderate aortic valve sclerosis. No aortic regurgitation is present. Mild aortic stenosis. The mitral valve is normal in structure. Trace mitral regurgitation. The tricuspid valve is normal in structure. IVC is normal in size and collapses with >50% inspiration There is no pericardial effusion. There is normal LV segmental wall motion. <ELECTRONICALLY SIGNED> By: Carlton Wilkerson MD, FACC 02/06/181650 50 50 Carlton Wilkerson MD, FACC /INF
--- NOTE | 2018-02-06 18:48 | NUR ---
ASSUMED CARE OF PATIENT AFTER TRANSFER FROM ICU AT 1845. PATIENT IS ALERT AND ORIENTED X4. VSS ON 3 LITERS 02. PATIENT HAS FAMILY AT BEDSIDE CURRENTLY. PATIENT AND FAMILY REQUESTED TO HAVE SUCTION WITH [employer] SET UP FOR THEM SO THAT PATIENT CAN USE IT IF HE FEELS THE NEED. PATIENT AND FAMILY ORIENTED TO ROOM AND INSTRUCTED TO USE CALL LIGHT FOR NEEDS. PATIENT RESTING COMFORTABLY IN BED AT THIS TIME, CALL LIGHT WITHIN REACH, NURSING WILL CONTINUE TO MONITOR.
[2018-02-07 04:05] LABS: HEMOGLOBIN 8.9 gm/dL (14.0-18.0); MCH 27.6 pg (26.0-34.0); MCHC 32.8 g/dL (28.0-37.0); NUCLEATED RBCS 0 /100WBC; PLATELET COUNT* 215 thou/uL (150-400); RBC 3.21 mil/uL (4.50-6.00); RDW-CV 16.7 % (10.5-14.5); WBC 12.1 thou/uL (4.0-11.0)
[2018-02-07 04:11] LABS: CALCIUM 9.4 mg/dL (8.5-10.1); CREATININE 1.2 mg/dL (0.6-1.3); POTASSIUM 5.9 mmol/L (3.5-5.1)
[2018-02-07 06:26] LABS: ABSOLUTE LYMPHOCYTES 0.6 thou/uL (0.8-5.3); ABSOLUTE NEUTROPHILS 11.5 thou/uL (1.6-8.1); PLATELET ESTIMATE ADEQUATE
[2018-02-07 09:52] VITALS: BP 120/65
--- NOTE | 2018-02-07 16:07 | NUR ---
Received referral to speak with pt and family re: hospice. Reviewed chart and spoke with nurse, pt, brother, spouse and granddaughter Giovanna. Pt is alert and oriented. Pt said he does not want to be put on the ventilator again and is agreeable with hospice. Pt was living at home with prior to hospitalization, and was on service with [facility]. Pt and spouse given choices, and they want to use [facility]. Called [facility] and faxed referral. Their liaison will be on the unit within 30 minutes. Pt wants to return home on Sunday with hospice. Spouse still has questions. [facility] said they had a referral in October while pt was hospitalized at [facility]. Will remain available to assist as needed.
--- NOTE | 2018-02-07 20:16 | NUR ---
ASSUMED CARE OF PATIENT AFTER MORNING REPORT AT 0720. ALERT AND ORIENTED X4. ASSESSMENT COMPLETED AND CHARTED. VSS ON 3 LITERS 02 VIA NASAL CANULA. PATIENT HAD COMPLAINTS OF PAIN MANAGED WITH PAIN MEDICATION VIA IV AND PEG TUBE. PEG TUBE REMAINS PATENT AND JEVITY INFUSING AT 75ML PER HOUR. PATIENT CALLED OUT THIS AFTERNOON WITH COMPLAINT OF SOA, RT WAS CALLED TO EVALUATE AND TITRATED PATIENTS 02 UP TO 4 LITERS, PATIENT RESPONDED WELL. PATIENT COUGHING UP COPIOUS AMOUNTS OF YELLOWISH PHLEGM. MANY SUPPORTIVE FAMILY MEMBERS AT BEDSIDE THROUGHOUT THE SHIFT TODAY. HOURLY ROUNDS MAINTAINED, CALL LIGHT WITHIN REACH, NURSING WILL CONTINUE TO MONITOR.
[2018-02-07 20:45] VITALS: BP 137/76
--- NOTE | 2018-02-08 05:05 | NUR ---
PATIENT REMAINS ALERT AND ORIENTED X4 THROUGHOUT SHIFT. VITAL SIGNS STABLE ON 4 LITERS OF OXYGEN. CENTRAL LINE PATENT IN THE LEFT CHEST SALINE LOCKED. SLAUGHTER IN PLACE AND DRAINING LIGHT YELLOW URINE, SECURED WITH STAT LOCK. AT BEDSIDE. REPOSITIONING Q2HOUR AT PATIENT REQUEST. PAIN MANAGED WITH PO AND IV PAIN MEDICATION PER ORDERS. MEDICATIONS CRUSHED AND GIVEN THROUGH JTUBE. MAINTAINED NPO STATUS. ASSISTED ONTO BEDPAN. HOURLY ROUNDING COMPLETE. BED IN LOW POSITION. CALL LIGHT WITHIN REACH. NURSING WILL CONTINUE TO MONITOR.
[2018-02-08 08:51] VITALS: BP 128/80
--- NOTE | 2018-02-08 09:39 | CON ---
[address] [address] CONSULTATION Name: MAEGAN SCHMIDT Room: [address] IN M.R.#: [id number] Admission: 02/06/18 Attend Phys: Ambrocio Dyson MD Discharge: Date of : 54 Report #: [id number] THIS REPORT FOR: //name// CC: Ambrocio Dyson Physician staff ALINA RAO HISTORY OF PRESENT ILLNESS: The patient is a pleasant 67-year-old man who was brought into the ER early this morning via ambulance. He has a known history of progressive metastatic esophageal carcinoma. Apparently recently, he had gotten confirmation that things were progressing. Not yet enrolled in hospice care. He was doing relatively well yesterday according to his . However, became much more short of breath, was coughing up copious amounts of secretions. He has had a chronic cough and sputum production. His notes consistently he has copious amounts and it is so thick she has to use very hot water to clean out any containers that he coughs his sputum into. He was brought into the ED via ambulance during the night. Had a respiratory arrest in the ambulance, so they subsequently intubated him. IO was placed. In the ED, did have a central line placed and IO was removed. Subsequently, he was transferred over to the Intensive Care Unit. The patient was seen at this hospital earlier this month. He has a history of esophageal carcinoma, which was diagnosed last year. It was fairly extensive. He had radiation and chemotherapy. Has a PEG tube in place. He does not take anything by mouth. He has had a lot of hospital stays at where he has gotten most of his care up until recently. 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 When he was seen earlier this month where he was hospitalized for treatment of pneumonia, he was having copious amounts of secretion at that time. It was almost a true "bronchorrhea." He was then transferred to [facility], which concerned that he may have had a new TE fistula. Reportedly none was found. He was then sent home. According to his , additional imaging has confirmed he has progression of his disease involving his liver, was told he did not have long to live, but they had not yet enrolled in hospice care. Since admission, he has been hemodynamically fairly stable. When he is awakened, he has a lot of secretions. A pretty strong cough. He is not hypotensive. He is on a Versed drip, but has not required any pressors. Antibiotics, breathing treatments and steroids have been started. PAST MEDICAL HISTORY: Esophageal cancer, which was diagnosed last year is noted. Also, has a history of coronary artery disease, had bypass surgery over 15 years ago. He is also a diabetic. He had lot of other complications related to his cancer and treatments. Has been intubated previously. Has had "sepsis." HOME MEDICATIONS: Recently have been oxycodone, atorvastatin, insulin, aspirin, metoprolol, senna, albuterol 4 times a day, baclofen, gabapentin, [place], [place] [address] CONSULTATION Name: MAEGAN SCHMIDT Room: [address] IN ..#: [id number] Admission: 02/06/18 Attend Phys: Ambrocio Dyson MD Discharge: Date of : 54 Report #: [id number] ascorbic acid, acetaminophen. He is on an antibiotic at home as well. SOCIAL HISTORY: He is a former smoker. He is . FAMILY HISTORY: Positive for COPD. REVIEW OF SYSTEMS: Unable to get from the patient. Per his , persistent large amounts of very thick tenacious secretions as noted. She notes he has been strictly n.p.o. with all medications and nutrition via his PEG. Has been getting increasingly weaker. PHYSICAL EXAMINATION: GENERAL APPEARANCE: Have a chronically ill-appearing man. He was seen in the ICU on the ventilator. He is arousable despite the Versed drip (currently down to 1 mg per hour at time of my visit). He is nodding and shaking his head to simple questions. Baseline, does appear to have a bit of a tremor. He looks uncomfortable. HEENT: Head is normocephalic. Sclerae nonicteric. Mucous membranes do look dry. NECK: Negative for adenopathy. LINES: He has a left IJ catheter in place. He has a right upper extremity PICC line in place. HEART: Tones are distant, but regular. They are partially obscured by overlying lung sounds. PULMONARY: Lung sounds are coarse. Few rhonchi heard bilaterally. Air exchange is equal bilaterally. ABDOMEN: Slightly distended. PEG tube in place. No definite hepatomegaly is noted. Robison catheter in place. EXTREMITIES: Without any significant edema. SKIN: Warm and dry. NEUROLOGIC: He is spontaneously moving his extremities. He is somewhat sedated, but he is arousable. Again, he is nodding and shaking his head to some questions. LABORATORY AND X-RAY FINDINGS: BUN is 32, creatinine of 1.0, potassium is 4.7. Troponin elevated this morning at 2.10. ProBNP almost 1200. Alkaline phosphatase elevated at 135. White blood cell count 11,500; hemoglobin 8.8; hematocrit 26.7; platelets 208,000. Arterial blood gases done this morning, he had a pH 7.32, pCO2 of 53, pO2 of 275, bicarbonate 27 with a saturation of 98%. That was on the ventilator with an FIO2 of 80%, rate of 14, tidal volume of 650, PEEP of 5. Blood cultures have been sent. When he was here earlier in the month, sputum culture did grow out pseudomonas. Currently, his medications here in the hospital are Lovenox for DVT prophylaxis, cefepime, methylprednisolone, q.i.d. neb treatments, Versed drip, Protonix, docusate and p.r.n. Zofran. Also, p.r.[place] [address] CONSULTATION Name: MAEGAN SCHMIDT Room: [address] IN [facility]#: [id number] Admission: 02/06/18 Attend Phys: Ambrocio Dyson MD Discharge: Date of : 54 Report #: [id number] A chest x-ray, neglected to mention above. Does show endotracheal tube in position. Esophageal stents are visible. Bilateral infiltrates noted, right greater than left. IMPRESSION: 1. Acute respiratory failure. Intubated for respiratory arrest. 2. Bilateral infiltrates. Has had ongoing issues with pneumonia and secretions. Reportedly, no new tracheoesophageal fistula was found. However, still somewhat suspicious. He probably has enough changes and perhaps bronchiectasis and chronic bronchitis with his treatments and immunocompromised state. He can still aspirate saliva, though he has been strictly n.p.o. per his family. 3. Metastatic esophageal cancer. Unfortunately, he has had progression of his disease. Prognosis is very poor. 4. Remote history of coronary artery bypass grafting with coronary artery disease. Elevated troponin. Could represent a non-ST elevation myocardial infarction. May also be stress induced given his acute illness. 5. Diabetes mellitus. 6. Overall prognosis is extremely poor. RECOMMENDATIONS: 1. We will add some p.r.n. morphine. 2. Discussed with at the bedside. She notes additional family is coming in this afternoon. Between now and then, she would like him to be sedated and kept comfortable. The plan is to discuss what their wishes are as she did tell me that she would like him to be able to at home. Discussed keeping him on the ventilator for several days. Even if there is some transient improvement, unfortunately it will not have a bearing on his underlying progressive esophageal cancer. <ELECTRONICALLY SIGNED> By: Abdirahman Ingram MD 02/08/18 0939 1115 [id number] Carnes MD /nt
[2018-02-08] MEDS ORDERED: PREDNISONE 10 M10 MG PO (10:57)
[2018-02-08] MEDS ORDERED: AUGMENTIN 500-1 EACH PO (10:58)
[2018-02-08 11:07] VITALS: BP 128/80
--- NOTE | 2018-02-08 11:59 | CON ---
[address] [address] CONSULTATION Name: MAEGAN SCHMIDT Room: [address] IN M.R.#: [id number] Admission: 02/06/18 Attend Phys: Ambrocio Dyson MD Discharge: Date of : 54 Report #: [id number] THIS REPORT FOR: //name// CC: Ambrocio Dyson Physician staff ALINA RAO DATE OF SERVICE: 02/07/2018 REASON FOR CONSULTATION: Metastatic esophageal carcinoma. REQUESTING PHYSICIAN: Ambrocio Dyson MD HISTORY OF PRESENT ILLNESS: The patient is a pleasant 67-year-old man with metastatic esophageal carcinoma to the liver who was admitted to the hospital with elevated troponin, shortness of breath and respiratory failure. He was intubated yesterday, but got extubated again. Considering his options, Oncology consult is requested. He has been feeling somewhat better today. He cannot swallow. He is using feeding tube for tube feeds as he is very weak, has not been able to walk without assistance. He does not have any pain. He has history of esophageal carcinoma, status post esophagectomy, very poor response to neoadjuvant chemotherapy. Now, he has metastatic recurrent cancer in the liver. He was seen by Dr. Hannah. He had an abdominal MRI, which showed new metastasis disease and he is supposed to see Dr. Hannah on Sunday for his options. PAST MEDICAL HISTORY: Significant for esophageal carcinoma, coronary artery disease status post bypass surgery, diabetes. SOCIAL HISTORY: He has supportive family, at bedside. He is a former smoker. REVIEW OF SYSTEMS: See above. PHYSICAL EXAMINATION: GENERAL: Reveals a well-developed, well-nourished man, not in any acute distress. VITAL SIGNS: Blood pressure 120/65, heart rate is 96, temperature ____, respirations 18. HEENT EXAMINATION: Does not reveal thrush. HEART: Normal S1, S2. LUNGS: Clear. ABDOMEN: Soft, feeding tube in place. MENTAL STATUS: Alert and oriented x 3. EXTREMITIES: Lower extremity[place] [address] CONSULTATION Name: MAEGAN SCHMIDT Room: [address] IN [facility].#: [id number] Admission: 02/06/18 Attend Phys: Ambrocio Dyson MD Discharge: Date of : 54 Report #: [id number] LABORATORY DATA: Hemoglobin 9.8, white count 12.1, platelets 216. ASSESSMENT AND PLAN: Recurrent metastatic esophageal carcinoma. I have discussed this case with Dr. Hannah. Dr. Hannah states that the patient is not a candidate for chemotherapy because of his poor performance status. He states that he is very refractory to chemotherapy. I have discussed this with the patient and agree with hospice. The patient is interested in hospice and family agrees. Thank you very much for allowing me to participate in the care of this patient. <ELECTRONICALLY SIGNED> By: Paulette Ortez MD 02/08/18 1159 1620 [id number] joseph Moore
--- NOTE | 2018-02-08 12:00 | NUR ---
PT.TO DISCHARGE TODAY WITH [facility]. NOTIFIED [facility] [phone]. SHE WILL LET JEROD KNOW. PT.LEAVING SHORTLY AND SHOULD BE HOME NO LATER THAN 1:00PM. FAXED DISCHARGE ORDERS AND MEDS TO HER AT [phone]. INFOMRED PT.AND SOMEONE WILL MEET THEM AT THEIR HOME FROM HOSPICE, TO GET HIM ADMITTED TO HOSPICE. TO DRIVE HIM HOME IN PRIVATE CAR. SHE HAS HIS PORTABLE O2 TANK FOR TRIP HOME. THEY HAD NO FURTHER QUESTIONS FOR CASE MANAGEMENT.
--- NOTE | 2018-02-08 12:18 | NUR ---
ASSUMED CARE OF PATIENT AFTER MORNING REPORT. ALERT AND ORIENTED X4. VSS ON 3 LITERS 02. PATIENT HAD MINIMAL COMPLAINTS OF PAIN WHICH WAS MANAGED WITH MEDICATION. MEDICATIONS GIVEN THROUGH PEG TUBE WHICH REMAINED PATENT. PATIENT DISCHARGED HOME WITH HOSPICE CARE OT 1210. ALL PERSONAL BELONGINGS, PRESCRIPTIONS AND DISCHARGE INFORMATION SENT WITH PATIENT UPON DISCHARGE.
== END 2018-02-08 12:10 | disposition hospice, home (50) | DRG 208 ==
LOC: M.ERS 23:48 → M.ICU 02-06 01:46 → M.TBA-ER 02-06 01:46 → M.ICU 02-06 01:51 → M.ORTHSURG 02-06 18:42
PROVIDERS: Internal Medicine; Personal Emergency Response Attendant; ADMIT Internal Medicine
DX: J96.21 Acute and chronic respiratory failure with hypoxia (principal); J69.0 Pneumonitis due to inhalation of food and vomit; I21.4 Non-ST elevation (NSTEMI) myocardial infarction; E46 Unspecified protein-calorie malnutrition; I25.10 Atherosclerotic heart disease of native coronary artery without angina pectoris; Z66 Do not resuscitate; E11.9 Type 2 diabetes mellitus without complications; D64.9 Anemia, unspecified; Z68.30 Body mass index [BMI] 30.0-30.9, adult; Z95.1 Presence of aortocoronary bypass graft; Z85.01 Personal history of malignant neoplasm of esophagus; Z83.6 Family history of other diseases of the respiratory system; Z87.891 Personal history of nicotine dependence; Z79.82 Long term (current) use of aspirin; Z79.899 Other long term (current) drug therapy